=== PATIENT | female | born 1950 | race Caucasian/White ===

== ENCOUNTER 2019-12-11 12:45 | Emergency (ER) | payer MEDICARE, OTHER ==
[~2019-12-11] VITALS: Ht 160 cm; Wt 100.2 kg
[~2019-12-11 12:45] MED LIST: ALLEGRA ALLERG180 M1 PO; Calcium 500 MG1 EACH PO; FISH1000 PO; FLAX PO; LEVSOD137 PO; MONT10T PO; ONE DAILY FOR1 EAC3 PO; POLY500 PO; POTASSIUM99 M1 PO; Preservision A1 EACH PO; VITAMIN D-32000 UNIT PO
[2019-12-11] MEDS ORDERED: CYCL10 PO (14:27)
== END 2019-12-11 14:35 | disposition home or self-care (01) ==
LOC: ER 12:45
DX: S00.01XA Abrasion of scalp, initial encounter (principal); M54.5 Low back pain; Z88.6 Allergy status to analgesic agent; Z88.5 Allergy status to narcotic agent; Z23 Encounter for immunization; Z79.899 Other long term (current) drug therapy; W01.10XA Fall on same level from slipping, tripping and stumbling with subsequent striking against unspecified object, initial encounter
CPT/HCPCS: 70450; 72100; 90471; 90714; 99284-25

== ENCOUNTER 2020-07-08 10:23 | Emergency (ER) | payer MEDICARE, OTHER ==
[~2020-07-08] VITALS: Ht 160 cm; Wt 100.2 kg
[~2020-07-08 10:23] MED LIST changes: +CYCL10 PO
[2020-07-08 11:11] LABS: BASOPHILS ABSOLUTE AUTO 0.05 K/mm3 (0.00-0.23); BASOPHILS PERCENT AUTO 1 % (0-2); EOSINOPHILS ABSOLUTE AUTO 0.07 K/mm3 (0.00-0.68); EOSINOPHILS PERCENT AUTO 1 % (0-6); Hematocrit 38.8 % (33.0-51.0); Hemoglobin 12.9 g/dL (11.5-16.0); IMMATURE GRAN ABSOLUTE AUTO 0.02 K/mm3 (0.00-0.10); IMMATURE GRAN PERCENT AUTO 0 % (0-1); LYMPHOCYTES ABSOLUTE AUTO 4.13 K/mm3 (0.84-5.20); LYMPHOCYTES PERCENT AUTO 46 % (21-46); MONOCYTES ABSOLUTE AUTO 0.57 K/mm3 (0.16-1.47); MONOCYTES PERCENT AUTO 6 % (4-13); Mean Corpuscular HGB Conc 33.2 g/dL (31.5-36.5); Mean Corpuscular Volume 93 fL (80-100); Mean Platelet Volume 9.6 fL (9.1-12.4); NEUTROPHILS ABSOLUTE AUTO 4.11 K/mm3 (1.96-9.15); NEUTROPHILS PERCENT AUTO 46 % (41-73); Platelet Count 235 K/mm3 (150-400); RDW Coefficient Variation 12.1 % (11.7-14.2); RDW Standard Deviation 41.7 fL (35.1-46.3); Red Blood Cell Count 4.16 M/mm3 (3.80-5.20); White Blood Cell Count 8.95 K/mm3 (4.00-11.30)
[2020-07-08 11:40] LABS: Alanine Aminotransfer (ALT/SGP 19 U/L (12-78); Albumin, Blood 3.2 g/dL (3.4-5.0); Albumin/Globulin Ratio 0.7 (0.8-1.8); Alk Phos 61 U/L (50-136); Anion Gap 7 mmol/L (6-16); Aspartate Aminotrans (AST/SGOT 15 U/L (12-37); Bilirubin, Total 0.4 mg/dL (0.1-1.0); Blood Urea Nitrogen 14 mg/dL (8-24); Bun/Creatinine Ratio 25.3 (12.0-20.0); CO2, Blood 24 mmol/L (21-32); Chloride, Blood 108 mmol/L (98-108); Creatinine, Blood 0.55 mg/dL (0.40-1.00); Globulin, Blood 4.3 g/dL (2.2-4.0); Glomerular Filtration Rate >60 (60-); Glucose, Blood 87 mg/dL (70-99); Potassium, Blood 4.2 mmol/L (3.5-5.5); Sodium, Blood 139 mmol/L (136-145); Total Protein, Blood 7.5 g/dL (6.4-8.2)
== END 2020-07-08 13:50 | disposition home or self-care (01) ==
LOC: ER 10:23
PROVIDERS: Emergency Medicine
DX: G45.9 Transient cerebral ischemic attack, unspecified (principal); Z88.5 Allergy status to narcotic agent; Z79.899 Other long term (current) drug therapy
CPT/HCPCS: 36415; 70450; 80053; 85025; 93005; 93010; 99284-25; A9270

== ENCOUNTER 2023-04-25 13:38 | Inpatient (IN) | payer MEDICARE, OTHER ==
[~2023-04-25] VITALS: Ht 157.5 cm; Wt 83.9 kg
[~2023-04-25 13:38] MED LIST changes: +CITRACAL-D3 ER1 EAC1 PO; -Calcium 500 MG1 EACH PO; +FISH OIL 1,0001 EA10 PO; -FISH1000 PO; +PRESERVISION A1 EAC4 PO; -Preservision A1 EACH PO; +THERA-D2000 UNIT PO; -VITAMIN D-32000 UNIT PO
[2023-04-25 14:39] LABS: BASOPHILS ABSOLUTE AUTO 0.07 K/mm3 (0.00-0.23); BASOPHILS PERCENT AUTO 0 % (0-2); EOSINOPHILS ABSOLUTE AUTO 0.09 K/mm3 (0.00-0.68); EOSINOPHILS PERCENT AUTO 1 % (0-6); Hematocrit 34.2 % (33.0-51.0); Hemoglobin 12.2 g/dL (11.5-16.0); IMMATURE GRAN ABSOLUTE AUTO 0.13 K/mm3 (0.00-0.10); IMMATURE GRAN PERCENT AUTO 1 % (0-1); LYMPHOCYTES PERCENT AUTO 26 % (21-46); MONOCYTES ABSOLUTE AUTO 0.91 K/mm3 (0.16-1.47); MONOCYTES PERCENT AUTO 6 % (4-13); Mean Corpuscular HGB 31.9 pg (26.0-34.0); Mean Corpuscular HGB Conc 35.7 g/dL (31.5-36.5); Mean Corpuscular Volume 90 fL (80-100); NEUTROPHILS PERCENT AUTO 67 % (41-73); NRBC ABSOLUTE 0.02 K/mm3 (0.00-0.02); NRBC Auto 0.1 /100 WBC (0.0-0.2); RDW Coefficient Variation 12.9 % (11.7-14.2); RDW Standard Deviation 42.2 fL (35.1-46.3); Red Blood Cell Count 3.82 M/mm3 (3.80-5.20)
[2023-04-25 15:02] LABS: Mean Platelet Volume 10.3 fL (9.1-12.4); Platelet Count 378 K/mm3 (150-400)
[2023-04-25 15:12] LABS: Albumin, Blood 2.3 g/dL (3.4-5.0); Albumin/Globulin Ratio 0.4 (0.8-1.8); Bilirubin, Direct 3.5 mg/dL (0.0-0.3); Bilirubin, Total 6.5 mg/dL (0.1-1.0); Bun/Creatinine Ratio 19.7 (12.0-20.0); Calcium, Blood 8.9 mg/dL (8.5-10.1); Creatinine, Blood 0.46 mg/dL (0.40-1.00); Globulin, Blood 5.5 g/dL (2.2-4.0); Total Protein, Blood 7.8 g/dL (6.4-8.2)
[2023-04-25 15:15] LABS: Potassium, Blood 3.9 mmol/L (3.5-5.5)
[2023-04-25] MEDS ORDERED: LEVSOD150 PO (15:47)
[2023-04-25] MEDS ORDERED: Crestor20 MG PO (15:49)
[2023-04-25] MEDS ORDERED: MONT10T PO (15:49)
[2023-04-25] MEDS ORDERED: SERTRALINE HCL PO (15:50)
[2023-04-26 00:03] VITALS: BP 134/76
[2023-04-26 04:45] VITALS: BP 142/67
[2023-04-26 05:04] LABS: BASOPHILS ABSOLUTE AUTO 0.07 K/mm3 (0.00-0.23); BASOPHILS PERCENT AUTO 1 % (0-2); EOSINOPHILS ABSOLUTE AUTO 0.18 K/mm3 (0.00-0.68); EOSINOPHILS PERCENT AUTO 2 % (0-6); Hematocrit 33.5 % (33.0-51.0); Hemoglobin 11.4 g/dL (11.5-16.0); IMMATURE GRAN PERCENT AUTO 1 % (0-1); LYMPHOCYTES ABSOLUTE AUTO 3.32 K/mm3 (0.84-5.20); LYMPHOCYTES PERCENT AUTO 29 % (21-46); MONOCYTES ABSOLUTE AUTO 0.83 K/mm3 (0.16-1.47); MONOCYTES PERCENT AUTO 7 % (4-13); Mean Corpuscular HGB 30.7 pg (26.0-34.0); Mean Corpuscular Volume 90 fL (80-100); NEUTROPHILS ABSOLUTE AUTO 7.05 K/mm3 (1.96-9.15); NEUTROPHILS PERCENT AUTO 61 % (41-73); Platelet Count 372 K/mm3 (150-400); Red Blood Cell Count 3.71 M/mm3 (3.80-5.20); White Blood Cell Count 11.55 K/mm3 (4.00-11.30)
[2023-04-26 05:34] LABS: Albumin, Blood 2.1 g/dL (3.4-5.0); Albumin/Globulin Ratio 0.4 (0.8-1.8); Bilirubin, Total 4.4 mg/dL (0.1-1.0); Bun/Creatinine Ratio 12.1 (12.0-20.0); Calcium, Blood 8.5 mg/dL (8.5-10.1); Creatinine, Blood 0.5 mg/dL (0.40-1.00); Globulin, Blood 4.8 g/dL (2.2-4.0); Total Protein, Blood 6.9 g/dL (6.4-8.2)
[2023-04-26 07:46] VITALS: BP 135/87
--- NOTE | 2023-04-26 08:26 | NUR ---
SHIFT SUMMARY PT ARRIVED TO ROOM 357 FROM ER AT 2355, VIA GURNEY. PT TRANSFERED HERSELF INDEPENDENTLY TO OTHER BED. PT ORIENTED TO ROOM AND THE CALL LIGHT. SHE IS A&OX4, PLEASANT AND IN GOOD SPIRITS. VSS ON RA. DENIES PAIN. SKIN IS INTACT AND LOOKS GREAT. PT IS ON A REGULAR DIET, BUT TOO NERVOUS TO TRY FOOD D/T BEING NAUSEOUS. SHE HAD ICE WATER WITH NO ISSUES. SBA FOR LINE MANAGEMENT TO BR. VOIDING CONCENTRATED URINE, NO BM THIS SHIFT. BED IN LOWEST POSITION, CALL LIGHT WITHIN REACH.
[2023-04-26 10:29] LABS: Albumin, Blood 2.2 g/dL (3.4-5.0); Albumin/Globulin Ratio 0.4 (0.8-1.8); Bilirubin, Total 3.8 mg/dL (0.1-1.0); Bun/Creatinine Ratio 10.5 (12.0-20.0); Calcium, Blood 8.3 mg/dL (8.5-10.1); Creatinine, Blood 0.48 mg/dL (0.40-1.00); Globulin, Blood 4.9 g/dL (2.2-4.0); Potassium, Blood 2.9 mmol/L (3.5-5.5); Total Protein, Blood 7.1 g/dL (6.4-8.2)
--- NOTE | 2023-04-26 11:37 | NUR ---
DR FARAH CAME TO SEE THE PT- CLINICALLY PT IS LOOKING BETTER. THE PLAN IS TO TAKE HER TO SURGERY TOMORROW. PT TO BE CLEAR LIQUIDS TODAY THEN NPO AT MIDNIGHT. CHANGED DIET TO CLEAR LIQUID AND TO NPO TOMORROW MORNING. VERBAL ORDER TO HOLD LOVENOX TOMORROW.
[2023-04-26 15:37] VITALS: BP 145/70
--- NOTE | 2023-04-26 19:25 | NUR ---
REPORT RECEIVED VERIFIED, PT A/O VSS, VERY PLEASENT AND COOPERATIVE. MRI WAS CANCELLED AND PT DUE FOR SX IN MORNING AT 0730, POTASSIUM WAS LOW AND REPLACED WITH IV REPLACEMENT. NEW IV STARTED TO RT HAND WHICH PT FRIDA BUT DID NOT FRIDA THE POTASSIUM. POTASSIUM SLOWED UNTIL PT COULD FRIDA. PT NPO AFTER MID NIGHT
[2023-04-26 21:18] VITALS: BP 141/76
[2023-04-27] VITALS (16 sets, daily range): BP systolic 111–155; BP diastolic 60–88
--- NOTE | 2023-04-27 04:33 | NUR ---
SHIFT SUMMARY PT A&O X4. ABLE TO MAKE NEEDS KNOWN. VSS. NS INFUSING PER EMAR. K+ INFUSED PER EMAR. PT INDEPENDENT WITH ADL'S, NEEDS MINIMAL ASSISTANCE WITH IV POLE. PT HAS BEEN NPO SINCE MIDNIGHT. NO ACUTE CHANGES OVERNIGHT. DENIES ABDOMINAL PAIN. VOIDING WELL. BED IN LOWEST POSITION AND CALL LIGHT WITHIN REACH. THIS RN WILL REPORT TO ONCOMING DAYSHIFT RN.
[2023-04-27 05:51] LABS: Hematocrit 33.9 % (33.0-51.0); Hemoglobin 11.3 g/dL (11.5-16.0); Mean Corpuscular HGB 30.6 pg (26.0-34.0); Mean Corpuscular HGB Conc 33.3 g/dL (31.5-36.5); Mean Corpuscular Volume 92 fL (80-100); Mean Platelet Volume 10.2 fL (9.1-12.4); Platelet Count 385 K/mm3 (150-400); RDW Coefficient Variation 13.3 % (11.7-14.2); RDW Standard Deviation 44.8 fL (35.1-46.3); Red Blood Cell Count 3.69 M/mm3 (3.80-5.20); White Blood Cell Count 10.76 K/mm3 (4.00-11.30)
[2023-04-27 06:17] LABS: Albumin/Globulin Ratio 0.4 (0.8-1.8); Bun/Creatinine Ratio 7.9 (12.0-20.0); Calcium, Blood 8.4 mg/dL (8.5-10.1); Creatinine, Blood 0.5 mg/dL (0.40-1.00); Globulin, Blood 4.8 g/dL (2.2-4.0); Potassium, Blood 3.5 mmol/L (3.5-5.5); Total Protein, Blood 6.8 g/dL (6.4-8.2)
[2023-04-27 06:18] LABS: BASOPHILS PERCENT MAN 0 % (0-2); EOSINOPHILS ABSOLUTE MAN 0.32 K/mm3 (0.00-0.68); EOSINOPHILS PERCENT MAN 3 % (0-6); LYMPHOCYTES ABSOLUTE MAN 2.69 K/mm3 (0.84-5.20); LYMPHOCYTES PERCENT MAN 25 % (21-46); MONOCYTES ABSOLUTE MAN 0.53 K/mm3 (0.16-1.47); MONOCYTES PERCENT MAN 5 % (4-13); SEG NEUTROPHILS PERCENT MAN 67 % (41-73); TOTAL CELLS COUNTED 100
--- NOTE | 2023-04-27 13:49 | NUR ---
04/27/23 1349 Lupe Young 1MG OF GLUCAGON GIVEN IV BY ANESTHESIA DURING CHOLANGIOGRAM
--- NOTE | 2023-04-27 16:37 | NUR ---
PT CAME BACK FROM OR- PT STILL VERY GROGGY, SHE RESPONDS APPROPRIATELY, BUT IS SLEEPY. SHE HAS A NEW ROGELIO DRAIN TO THE RIGHT ABD WELL LAP SITES HIDDEN BY GAUZE WITH TEGADERM COVERING. DRESSING IN TACT. PT STATED SHE HAS TO PEE AFTER ARRIVING ON THE UNIT. ASSISTED HER TO THE BED FROST, SHE VOIDED ABOUT 100ML OF DARK URINE. PER DR JAY THE PT GALLBLADDER WAS REMOVED BUT THERE IS A STONE BLOCKING THE COMMON BILE DUCT. THE PT NEEDS TO BE TRANSFERED TO A HIGHER LEVEL OF CARE FOR ERCP. PT FELL BACK TO SLEEP ON THE BED FROST.
--- NOTE | 2023-04-27 16:41 | NUR ---
PT SATS DROPPING- O2 SATS DROPPED TO 88 FOR A MINUTE ON ROOM AIR. PLACED PT ON 2L O2 VIA NC. NO S&S OF DISTRESS.
--- NOTE | 2023-04-27 16:42 | NUR ---
PT IS HAVING READINGS OF LOW HR, IN THE 40'S, ON VS MACHINE. THEY ARE BRIEF MAYBE [address] SO[address] CALLED DR GU AND LEFT A MESSAGE, WAITING FOR A CALL BACK TO REQUEST TELE.
--- NOTE | 2023-04-27 16:54 | NUR ---
RECIEVED A CALL FROM DR GU- HE SPOKE TO DR JAY AND IS AWARE OF THE NEED FOR ERCP. SPOKE TO HIM ABOUT THE PT O2 REQUIREMENTS AND THE LOWS WE ARE SEEING ON PULSE OX. REQUESTED TELE. RECIEVED ORDER FOR TELE, ORDER PLACED IN ORDER MANAGEMENT.
--- NOTE | 2023-04-27 19:53 | NUR ---
SHIFT SUMMARY- PT HAD A LAP RODNEY TODAY. POST OP VITALS ARE DUE AGAIN AT 1999 AND THEN SWITCH TO Q4 PASSED ON TO NIGHT RN IN BEDSIDE REPORT. PT HAS REQUESTED NO PAIN MEDS SINCE THE PROCEDURE. SHE STATES SHE HAS THE SAME UPPER ABD PAIN PRIOR TO COMING TO THE HOSPITAL (SAME LOCATION NOT INTENSITY). PT HAS A ROGELIO DRAIN IN PLACE THAT IS DRAINING SEROSANGUINOUS FLUID, NIGHT RN AND THIS RN VISUALIZED THE DRESSINGS FROM SURGERY AT THE TIME OF REPORT AND THEY ARE C/D/I WITH NO SIGN OF BLEEDING. PT IN BED, USING THE BED FROST FOR VOIDING, SHE REQUESTED A PUREWICK D/T FREQUENCY DURING SHIFT REPORT. PT NOW ON TELE AND 2L O2 VIA NC TO MAINTAIN SATS SHE RECOVERS FROM THE PROCEDURE. PT IN BED, CALL LIGHT IN REACH NO S&S OF DISTRESS NOTED.
[2023-04-28 00:07] VITALS: BP 144/70
[2023-04-28 04:21] VITALS: BP 131/63
[2023-04-28 05:06] LABS: BASOPHILS ABSOLUTE AUTO 0.07 K/mm3 (0.00-0.23); BASOPHILS PERCENT AUTO 0 % (0-2); EOSINOPHILS ABSOLUTE AUTO 0.03 K/mm3 (0.00-0.68); EOSINOPHILS PERCENT AUTO 0 % (0-6); Hematocrit 32.8 % (33.0-51.0); Hemoglobin 11.1 g/dL (11.5-16.0); IMMATURE GRAN ABSOLUTE AUTO 0.18 K/mm3 (0.00-0.10); IMMATURE GRAN PERCENT AUTO 1 % (0-1); LYMPHOCYTES ABSOLUTE AUTO 2.09 K/mm3 (0.84-5.20); LYMPHOCYTES PERCENT AUTO 10 % (21-46); MONOCYTES ABSOLUTE AUTO 0.95 K/mm3 (0.16-1.47); MONOCYTES PERCENT AUTO 5 % (4-13); Mean Corpuscular HGB 30.9 pg (26.0-34.0); Mean Corpuscular HGB Conc 33.8 g/dL (31.5-36.5); Mean Corpuscular Volume 91 fL (80-100); Mean Platelet Volume 9.6 fL (9.1-12.4); NEUTROPHILS ABSOLUTE AUTO 17.18 K/mm3 (1.96-9.15); NEUTROPHILS PERCENT AUTO 84 % (41-73); Platelet Count 389 K/mm3 (150-400); RDW Coefficient Variation 13.4 % (11.7-14.2); RDW Standard Deviation 45.2 fL (35.1-46.3); Red Blood Cell Count 3.59 M/mm3 (3.80-5.20)
[2023-04-28 06:09] LABS: Albumin, Blood 1.9 g/dL (3.4-5.0); Albumin/Globulin Ratio 0.4 (0.8-1.8); Bilirubin, Direct 4.5 mg/dL (0.0-0.3); Bilirubin, Indirect 0.9 mg/dL (0.1-0.7); Bilirubin, Total 5.4 mg/dL (0.1-1.0); Bun/Creatinine Ratio 11.5 (12.0-20.0); Creatinine, Blood 0.52 mg/dL (0.40-1.00); Globulin, Blood 4.7 g/dL (2.2-4.0); Potassium, Blood 3.6 mmol/L (3.5-5.5); Total Protein, Blood 6.6 g/dL (6.4-8.2)
--- NOTE | 2023-04-28 07:35 | NUR ---
END OF SHIFT SUMMARY PT A&O x4, VSS, AFEBRILE, PT ON 2L VIA NC. RESP RATE EVEN AND UNLABORED. PT PLEASANT AND COOPERATIVE WITH CARE PROVIDED. PT ABLE TO MAKE NEEDS KNOWN. PT C/O PAIN TO RUQ. PAIN MANAGED WITH PRN IV FENTANYL AND IV TORADOL, WHICH WERE BOTH EFFECTIVE. PUREWICK IN PLACE OVER NIGHT. PT SLEPT ON AND OFF. NO C/O NAUSEA. IV ABX HUNG. PT ON TELEMETRY, NO CARDIAC EVENTS. PT SINUS RHYTHM WITH HR IN THE 60's. ROGELIO DRAIN, DRAINING WELL, MODERATE AMOUNT OF SANGUINEOUS FLUID. CALL LIGHT WITHIN REACH, WCTM.
[2023-04-28 07:45] VITALS: BP 120/61
[2023-04-28 15:36] VITALS: BP 130/62
[2023-04-28 15:41] VITALS: BP 130/62
--- NOTE | 2023-04-28 17:02 | NUR ---
PT [place] TX TO [facility] POST SURG, TOWER 4, CALLED REPOET TO LINDA AT 1600, STRETCHER HERE TO TX PT AT 1640. PT MEDICATED AT 1500 WITH NORCO AND ZOFRAN, HAVING MILD NAUSEA. IVF INFUSING UNTIL TX THAN SL. GIVEN TORADOL JUST PRIOR TO TX. SENT WITH BELONGINGS. FAMILY PRESENT AND SUPPROTIVE
== END 2023-04-28 16:40 | disposition short-term general hospital (02) | DRG 854 ==
LOC: ER 13:38 → MEDS 22:08
PROVIDERS: Family Medicine; Hospitalist; Internal Medicine; Physician Assistant; Surgery; ADMIT Internal Medicine
PROC: 3E03329 Introduction of Other Anti-infective into Peripheral Vein, Percutaneous Approach (ICD-10-PCS; 2023-04-25)
PROC: BF532Z0 Other Imaging of Gallbladder and Bile Ducts using Fluorescing Agent, Intraoperative (ICD-10-PCS; 2023-04-27)
PROC: 0FT44ZZ Resection of Gallbladder, Percutaneous Endoscopic Approach (ICD-10-PCS; principal; 2023-04-27 13:00)
DX: A41.9 Sepsis, unspecified organism (principal); E87.1 Hypo-osmolality and hyponatremia; K80.63 Calculus of gallbladder and bile duct with acute cholecystitis with obstruction; F41.9 Anxiety disorder, unspecified; Z66 Do not resuscitate; E03.9 Hypothyroidism, unspecified; E87.6 Hypokalemia; E78.00 Pure hypercholesterolemia, unspecified; J45.909 Unspecified asthma, uncomplicated; M16.0 Bilateral primary osteoarthritis of hip; Z79.890 Hormone replacement therapy; Z85.41 Personal history of malignant neoplasm of cervix uteri; Z90.710 Acquired absence of both cervix and uterus; Z28.21 Immunization not carried out because of patient refusal
CPT/HCPCS: 36415; 71045; 74177; 74300; 76705; 80048; 80053; 80076; 83690; 85025; 94762; 96361; 96365; 99285-25; A9270; C1894; C9113; J0696; J1100; J1610; J1650; J1885; J2250; J2405; J2704; J2710; J3010; J3480; J7030; J7120; Q9967

== ENCOUNTER → 2024-04-11 | Outpatient (CLI) | payer MEDICARE, OTHER ==
[~2024-04-11] MED LIST changes: +Crestor20 MG PO; +LEVSOD150 PO; +SERTRALINE HCL PO
== END | disposition home or self-care (01) ==
LOC: LAB 10:23 → LAB SHORT 10:23
DX: M85.80 Other specified disorders of bone density and structure, unspecified site (principal); Z78.0 Asymptomatic menopausal state
CPT/HCPCS: 82310; 82570